=== PATIENT | female | born 1975 | race Caucasian/White ===

== ENCOUNTER → 2016-11-22 | Outpatient (CLI) | payer BC ==
--- NOTE | ~2016-11-22 | CT2 ---
[facility] A Service [facility] RADIOLOGY TEXT RESULTS PATIENT: NORMAN TONEY LOCATION: [facility] : 71 UNIT #: [id number] AGE: [address]: Elisabeth Guaman SEX: F ORDER DR: [id number] [address] [address] [id number] O MR#: [id number] Acc #: [id number] NAME: NORMAN TONEY : 1975 SEX: F STUDY DATE/TIME: 11/22/2016 14:07 UNIT: [facility] ROOM: STUDY DESCRIPTION: CT Abd and Pelv W Cont Attending Physician: Elisabeth Guaman A.P.R.N. Referring Physician: Elisabeth Guaman A.P.R.N. Ordering Physician: Elisabeth Guaman A.P.R.N. Primary Care Physician: Elisabeth Guaman A.P.R.N. MEDICAL IMAGING REPORT This report is preliminary unless electronic signature is present. EXAM CT abdomen and pelvis INDICATIONS Abdominal pain. Generalized abdominal tenderness. Pain right of the umbilicus. TECHNIQUE CT abdomen and pelvis with p.o. and IV contrast (100 mL Isovue-370 IV contrast). Coronal and sagittal reconstructions were obtained. This CT exam was performed with one or more of the following radiation dose reduction techniques: automatic exposure control, adjustment of mA and/or kV according to patient size, and iterative reconstruction. COMPARISON CT abdomen and pelvis 09/28/2014. FINDINGS Abdomen: There are a few benign cysts in the liver. There is some cysts in both kidneys. Gallbladder is not distended. Pancreas, spleen and adrenal glands are within normal limits. The bowel is not dilated. Gallbladder is not distended. The bowel is not dilated. There is occasional colonic diverticula. No diverticulitis. The appendix is normal. The abdominal aorta is normal in caliber. Pelvis: The uterus and ovaries are within normal limits. Bladder is unremarkable. No enlarged pelvic or inguinal lymph nodes. [facility] A Service of [facility] RADIOLOGY TEXT RESULTS PATIENT: NORMAN TONEY LOCATION: [facility] : 71 UNIT #: [id number] AGE: [address]: Elisabeth Guaman SEX: F ORDER DR: No acute osseous abnormalities. IMPRESSION No acute findings in the abdomen or pelvis. Dictated by... Denis Shane M.D. THIS IS AN ELECTRONICALLY VERIFIED REPORT Denis Shane M.D. at 11/23/2016 2:50 PM VIANNEY/donnie TD: 11/22/2016 20:53 JOB #: [id number] MEDICAL IMAGING REPORT Page 1 of 1
== END | disposition home or self-care (01) ==
LOC: SCT 12:47
DX: R10.817 Generalized abdominal tenderness (principal); R14.0 Abdominal distension (gaseous)
CPT/HCPCS: 74177; Q9967

== ENCOUNTER → 2016-12-07 | Outpatient (CLI) | payer BC ==
--- NOTE | ~2016-12-07 | US98 ---
[facility] A Service of [facility] RADIOLOGY TEXT RESULTS PATIENT: NORMAN TONEY LOCATION: [facility] : 71 UNIT #: [id number] AGE: [address]: Elisabeth Guaman SEX: F ORDER DR: [id number] [address] [address] [id number] O MR#: [id number] Acc #: [id number] NAME: NORMAN TONEY : 1975 SEX: F STUDY DATE/TIME: 12/07/2016 8:35 UNIT: [facility] ROOM: STUDY DESCRIPTION: US Pelvic Non-OB Complete Attending Physician: Elisabeth Guaman A.P.R.N. Referring Physician: Elisabeth Guaman A.P.R.N. Ordering Physician: Elisabeth Guaman A.P.R.N. Primary Care Physician: Elisabeth Guaman A.P.R.N. MEDICAL IMAGING REPORT This report is preliminary unless electronic signature is present. EXAM Pelvic ultrasound INDICATIONS Left adnexal pain. Feels like a sharp pain and has been present for 2 weeks. LMP 10/08/2016. TECHNIQUE Ayala-scale, color Doppler and spectral Doppler waveform analysis was performed through the pelvis, both transabdominal and transvaginally. FINDINGS Transabdominal images are non-diagnostic due to overlying bowel gas. The endometrium measures within normal limits at 6 mm. Hypoechoic area is identified within the uterus measuring 1 x 0.5 x 0.8 cm. This is favored to represent a fibroid. Uterus is otherwise unremarkable. Neither ovary can be identified due to overlying bowel gas. IMPRESSION 1. Focal hypoechoic area is identified within the uterus, likely reflecting fibroid. In retrospect, it may have been present on the prior ultrasound from December 01, 2016. Neither ovary can be seen. Dictated by... Anne Marie Ceja M.D. THIS IS AN ELECTRONICALLY VERIFIED REPORT Anne Marie Ceja M.D. at 12/19/2016 8:13 AM AFF/pcl TD: 12/07/2016 23:10 [facility]. [facility] A Service of [facility] RADIOLOGY TEXT RESULTS PATIENT: NORMAN TONEY LOCATION: [facility] #: [id number] : 71 UNIT #: [id number] AGE: [address]: Elisabeth Guaman SEX: F ORDER DR: ELBA #: [id number] MEDICAL IMAGING REPORT Page 1 of 1
--- NOTE | ~2016-12-07 | US6 ---
[facility]. [facility] A Service of [facility] & [facility] RADIOLOGY TEXT RESULTS PATIENT: NORMAN TONEY LOCATION: [facility] : 71 UNIT #: [id number] AGE: [address]: Elisabeth Guaman SEX: F ORDER DR: [id number] [address] [address] [id number] O MR#: [id number] Acc #: [id number] NAME: NORMAN TONEY : 1975 SEX: F STUDY DATE/TIME: 12/07/2016 8:14 UNIT: [facility] ROOM: STUDY DESCRIPTION: US Abdominal Limited Attending Physician: Elisabeth Guaman A.P.R.N. Referring Physician: Elisabeth Guaman A.P.R.N. Ordering Physician: Elisabeth Guaman A.P.R.N. Primary Care Physician: Elisabeth Guaman A.P.R.N. MEDICAL IMAGING REPORT This report is preliminary unless electronic signature is present. EXAM Right upper quadrant ultrasound 12/07/2016 HISTORY Right upper quadrant abdominal pain for 3 weeks with vomiting. FINDINGS Ultrasound examination of the gallbladder is negative. There is no cholelithiasis, gallbladder wall thickening, or bile duct dilatation. The visualized liver is negative. IMPRESSION Negative gallbladder ultrasound examination. Dictated by... John Hess M.D. THIS IS AN ELECTRONICALLY VERIFIED REPORT John Hess M.D. at 12/10/2016 7:33 AM KRT/mely TD: 12/07/2016 20:36 JOB #: [id number] MEDICAL IMAGING REPORT Page 1 of 1
== END | disposition home or self-care (01) ==
LOC: SGUS 07:52
DX: K76.89 Other specified diseases of liver (principal); R10.2 Pelvic and perineal pain; R93.5 Abnormal findings on diagnostic imaging of other abdominal regions, including retroperitoneum
CPT/HCPCS: 76705; 76830; 76856